=== PATIENT | female | born 1955 | race Caucasian/White ===

== ENCOUNTER → 2016-04-16 | Outpatient (CLI) | payer OTHER ==
[~2016-04-16] MED LIST: ADVAIR 250-501 EAC1 IH; ADVAIR 250-501 EACH IH; ALBUTEROL17 GM INH; BENICAR20 MG PO; COZAAR PO; HYDROCODON-ACE1 EAC9 PO; IBUPROFEN800 MG PO; LIPITOR20 MG PO; PREDNISONE50 MG PO; SYMBICORT 160/4.6 G1 INH; VIBRAMYCIN100 M1 PO; VITAMIN D50000 UNIT PO; ZOFRAN PO
--- NOTE | ~2016-04-16 | XA80 ---
[facility] A Service of [facility] & [facility] RADIOLOGY TEXT RESULTS PATIENT: CASEY TIRADO LOCATION: CIVR : 55 UNIT #: [id number] AGE: [address]: Gerard Moreno MD SEX: F ORDER DR: [id number] [facility] [address] [place], [place] [address] [id number] O MR#: [id number] Acc #: [id number] NAME: CASEY TIRADO. : 1955 SEX: F STUDY DATE/TIME: 04/16/2016 9:19 UNIT: CIVR ROOM: STUDY DESCRIPTION: XA CVC Remove Tunneled Cath W Attending Physician: Gerard Moreno M.D. Ordering Physician: Gerard Moreno M.D. Primary Care Physician: No Primary Care Physician MEDICAL IMAGING REPORT This report is preliminary unless electronic signature is present EXAM MediPort removal. INDICATION Patient has a history colon cancer. She has completed therapy and her MediPort is being removed. PROCEDURE Procedure was explained to the patient including risks, benefits, potential complications, and potential for alternative forms of treatment and informed consent was obtained. Prior to initiating the procedure, a formal time-out procedure was performed. All elements of maximal sterile barrier technique including hand hygiene, caps, sterile gowns and gloves and masks. The left chest was prepped with 2% chlorhexidine for cutaneous antisepsis and was draped. Preliminary husker operator image was performed which showed a left subclavian MediPort which terminated within the left innominate vein. The skin and subcutaneous tissues were anesthetized with buffered lidocaine. The original skin incision was opened and the port was removed in its entirety using a combination of blunt and sharp dissection. Port pocket was irrigated and was closed using interrupted 3-0 Vicryl sutures and a running 4-0 Monocryl suture was used to close the skin. Dermabond was applied to the wound to act as a dressing. Final fluoroscopic image was obtained which showed no residual catheter material. Total fluoroscopy time was 0.1 minutes. Patient did receive conscious sedation consisting 3 mg of Versed and 100 mcg of fentanyl and continuous monitoring was provided throughout the procedure. A total of 2 fluoroscopic images were obtained. IMPRESSION Successful removal of the patient's left subclavian MediPort in its entirety. Fluoroscopy was used during the procedure and permanent images were saved. [facility] A Service of [facility] RADIOLOGY TEXT RESULTS PATIENT: CASEY TIRADO [id number] UNIT #: [id number] AGE: [address]: Gerard Moreno MD SEX: F ORDER DR: Dictated by... Ursula Quinn M.D. THIS IS AN ELECTRONICALLY VERIFIED REPORT Ursula Quinn M.D. at 04/17/2016 5:11 PM AFF/jackie TD: 04/17/2016 10:01 JOB #: [id number] MEDICAL IMAGING REPORT COPY
[2016-04-16 08:35] LABS: HEMATOCRIT 39.6 % (35.0-45.0); HEMOGLOBIN 12.9 gm/dL (12.0-16.0); MEAN CELL VOLUME 85.9 FL (83-96); MEAN CORPUSCULAR HEMOGLOBIN 27.9 PG (28-34); MEAN CORPUSCULAR HGB CONC 32.5 g/dL (30-36); MEAN PLATELET VOLUME 7.7 FL (6.5-11.5); RED BLOOD COUNT 4.61 X10e (3.90-5.30); RED CELL DISTRIBUTION WIDTH 16.5 % (11.0-15.5); WHITE BLOOD COUNT 5.4 X10e3 (4.0-10.5)
[2016-04-16 08:46] LABS: PARTIAL THROMBOPLASTIN TIME 26.2 SECONDS (23.5-31.3); PROTHROMBIN TIME (PATIENT) 10.6 SECONDS (9.6-11.5)
== END | disposition home or self-care (01) ==
LOC: CIVR 08:02
PROVIDERS: Internal Medicine Medical Oncology
DX: Z45.2 Encounter for adjustment and management of vascular access device (principal); C18.9 Malignant neoplasm of colon, unspecified; C78.7 Secondary malignant neoplasm of liver and intrahepatic bile duct
CPT/HCPCS: 36415; 77001; 85027; 85610; 85730; J1642; J2250; J3010

== ENCOUNTER → 2016-04-22 | Outpatient (CLI) | payer OTHER ==
--- NOTE | ~2016-04-22 | BD1 ---
[facility] A Service of [facility] RADIOLOGY TEXT RESULTS PATIENT: CASEY TIRADO LOCATION: [facility] : 55 UNIT #: [id number] AGE: [address]: SHELIA SALVADOR APRN SEX: F ORDER DR: [id number] [facility] [address] [place], [place] [address] [id number] O MR#: [id number] Acc #: [id number] NAME: CASEY TIRADO. : 1955 SEX: F STUDY DATE/TIME: 04/22/2016 13:36 UNIT: [facility] ROOM: STUDY DESCRIPTION: BD Dexa Bone Dens 1+ Site Attending Physician: Shelia Salvador Np Referring Physician: Shelia Salvador Np Primary Care Physician: Shelia Salvador Np MEDICAL IMAGING REPORT This report is preliminary unless electronic signature is present EXAM DXA scan 04/22/2016 HISTORY Status post menopause with no hormone replacement therapy. Osteopenia. Removal of 1 ovary. Hypertension with blood pressure medication for 5 years, colon cancer and liver cancer. FINDINGS Bone mineral density in the lumbar spine from L1-L4 is 0.693 g/cm2 which is 3.2 standard deviations below the mean when compared to the young adult reference population which is characteristic of osteoporosis. This is 1.7 standard deviations below the mean when compared to the age-matched population. Bone mineral density in the left femoral neck was 0.55 g/cm2 which is 2.7 standard deviations below the mean when compared to young adult reference population which is characteristic of osteoporosis. This is 1.4 standard deviations below the mean when compared to the age-matched population. IMPRESSION Bone mineral density in the lumbar spine and left hip characteristic of osteoporosis. Dictated by... Mateus Hernandez M.D. THIS IS AN ELECTRONICALLY VERIFIED REPORT Mateus Hernandez M.D. at 04/23/2016 4:18 PM KRT/pcl [facility] A Service of [facility] RADIOLOGY TEXT RESULTS PATIENT: CASEY TIRADO LOCATION: [facility] : 55 UNIT #: [id number] AGE: [address]: SHELIA SALVADOR APRN SEX: F ORDER DR: TD: 04/22/2016 20:05 JOB #: [id number] MEDICAL IMAGING REPORT COPY
== END | disposition home or self-care (01) ==
LOC: CWCC 13:09
DX: G62.9 Polyneuropathy, unspecified (principal); E55.9 Vitamin D deficiency, unspecified; M81.0 Age-related osteoporosis without current pathological fracture
CPT/HCPCS: 77080